=== PATIENT | female | born 1990 | race Caucasian/White ===

== ENCOUNTER 2018-02-05 16:29 | Emergency (ER) | payer MEDICAID ==
[~2018-02-05] VITALS: Ht 170.2 cm; Wt 55.0 kg
[~2018-02-05 16:29] MED LIST: IBUP-1985 PO; NITR100C6 PO; PHEN-716 PO
[2018-02-05 16:42] VITALS: BP 123/65
[2018-02-05] MEDS ORDERED: SULF1TAB49 PO (16:44)
== END 2018-02-05 16:52 | disposition home or self-care (01) ==
LOC: ER 16:29
DX: L03.113 Cellulitis of right upper limb (principal); F12.10 Cannabis abuse, uncomplicated
CPT/HCPCS: 99283

== ENCOUNTER 2023-05-31 18:14 | Emergency (ER) | payer MEDICAID ==
[~2023-05-31] VITALS: Ht 170.2 cm; Wt 54.5 kg
[2023-05-31 18:30] VITALS: BP 111/75
== END 2023-05-31 23:53 | disposition left against medical advice (07) ==
LOC: ER 18:15
DX: R07.81 Pleurodynia (principal); Z53.21 Procedure and treatment not carried out due to patient leaving prior to being seen by health care provider
CPT/HCPCS: 71045; 99281